=== PATIENT | female | born 1985 | race Caucasian/White ===

== ENCOUNTER 2017-03-18 06:59 | Emergency (ER) | payer OTHER ==
[2017-03-18 07:08] VITALS: BP 135/83; PULSE 94; RESP 20; TEMP 98
--- NOTE | 2017-03-18 07:55 | ED ---
General Adult HPI - General Chief complaint: ENT Stated complaint: sinus problem Time Seen by Provider: 03/18/17 07:00 Source: patient, RN notes reviewed Mode of arrival: ambulatory Limitations: no limitations - History of Present Illness Initial comments: 31-year-old female presents emergency Department with some right ear pressure as well as a culture to her lip on the right side. Patient denies any ear drainage. Patient denies any sinus tenderness. Patient denies any fever or chills. Patient does complain of the pressure coming and going she states it's very difficult pop or ears. Patient states the lip has a cold sore on and has been ongoing for 2 days. Patient denies any paralysis left side of the face she denies any rashes on her skin or around the ear. Patient denies any difficulty breathing first breath patient denies any cough. Patient has a sore throat. - Related Data Home Medications Medication Instructions Recorded Confirmed Citalopram Hydrobromide [CeleXA] 10 mg PO DAILY 03/18/17 03/18/17 Ibuprofen [Motrin] 400 mg PO Q6HR PRN 03/18/17 03/18/17 clonazePAM [KlonoPIN] 0.25 mg PO DAILY PRN 03/18/17 03/18/17 Allergies Allergy/AdvReac Type Severity Reaction Status Date / Time No Known Allergies Allergy Verified 03/18/17 07:42 Review of Systems ROS Statement: Those systems with pertinent positive or pertinent negative responses have been documented in the HPI. ROS Other: All systems not noted in ROS Statement are negative. Past Medical History Past Medical History: No Reported History History of Any Multi-Drug Resistant Organisms: None Reported Additional Past Surgical History / Comment(s): etopic right fallopian tube removed Past Psychological History: Anxiety, Panic Disorder Smoking Status: Never smoker Past Alcohol Use History: Rare Past Drug Use History: None Reported General Exam - General Exam Comments Initial Comments: GENERAL: Patient is well-developed and well-nourished. Patient is nontoxic and well- hydrated and is in no acute distress. ENT: Neck is soft and supple. No significant lymphadenopathy is noted. Oropharynx is clear. Moist mucous membranes. There was a small cluster of vesicles on the inside of the lower lip on the right. TMs were normal bilaterally EYES: The sclera were anicteric and conjunctiva were pink and moist. Extraocular movements were intact and pupils were equal round and reactive to light. Eyelids were unremarkable. SKIN: Skin is clear with no lesions or rashes and otherwise unremarkable. NEUROLOGIC: Patient is alert and oriented x3. Cranial nerves II through XII are grossly intact. Motor and sensory are also intact. Normal speech, volume and content. Symmetrical smile. MUSCULOSKELETAL: Normal extremities with adequate strength and full range of motion. Limitations: no limitations Course Vital Signs 03/18/17 07:05 Temperature 98.0 F Pulse Rate 94 Respiratory 20 Rate Blood Pressure 135/83 O2 Sat by Pulse 97 Oximetry Disposition Clinical Impression: Cold sore Disposition: HOME SELF-CARE Condition: Good Instructions: Oral Herpes Simplex Virus Infections (ED) Additional Instructions: Patient should use Abreva on the cold sore Referrals: None,Stated [Primary Care Provider] - 1-2 days Time of Disposition: 07:55
== END 2017-03-18 08:09 | disposition home or self-care (01) ==
LOC: EC 06:59
DX: B00.1 Herpesviral vesicular dermatitis (principal); F41.0 Panic disorder [episodic paroxysmal anxiety]; Z79.899 Other long term (current) drug therapy
CPT/HCPCS: 99283

== ENCOUNTER 2017-03-22 17:31 | Emergency (ER) | payer OTHER ==
[2017-03-22 17:40] VITALS: BP 131/84; PULSE 91; RESP 18; TEMP 98.6
--- NOTE | 2017-03-22 18:09 | ED ---
General Adult HPI - General Chief complaint: ENT Stated complaint: Problems with shingles Time Seen by Provider: 03/22/17 17:43 Source: patient, RN notes reviewed Mode of arrival: ambulatory Limitations: no limitations - History of Present Illness Initial comments: Patient's 31-year-old female who presents emergency room today with chief complaint of she will rest of right-sided face. She does admit that she's also has a right-sided otitis media. She states she's been on acyclovir along with Augmentin for the symptoms over the last 2 days. Patient states that she was advised that this any symptoms increase or worsen towards the eye or the ear that she should return to the emergency room for further evaluation. She states nearly area was unable to get into an ENT doctor as it is a holiday. Patient denies any increased symptoms going towards the eye. She denies any complaints with the right side. She states the rash as stated about the same over the last few days does not seem to be getting worse or spreading. She states she began having some ringing sensation in the right ear earlier today and was concerned and decided to come back to be checked. Patient denies any other complaints or symptoms. Patient denies any recent fever, chills, shortness of breath, chest pain, back pain, abdominal pain, nausea or vomiting, dysuria or hematuria, constipation or diarrhea, headaches or visual changes, or any other complaints. - Related Data Home Medications Medication Instructions Recorded Confirmed Citalopram Hydrobromide [CeleXA] 10 mg PO DAILY 03/18/17 03/18/17 Ibuprofen [Motrin] 400 mg PO Q6HR PRN 03/18/17 03/18/17 clonazePAM [KlonoPIN] 0.25 mg PO DAILY PRN 03/18/17 03/18/17 Allergies Allergy/AdvReac Type Severity Reaction Status Date / Time No Known Allergies Allergy Verified 03/22/17 17:40 Review of Systems ROS Statement: Those systems with pertinent positive or pertinent negative responses have been documented in the HPI. ROS Other: All systems not noted in ROS Statement are negative. Past Medical History Past Medical History: No Reported History Additional Past Medical History / Comment(s): shingles History of Any Multi-Drug Resistant Organisms: None Reported Additional Past Surgical History / Comment(s): etopic right fallopian tube removed Past Psychological History: Anxiety, Panic Disorder Smoking Status: Never smoker Past Alcohol Use History: None Reported Past Drug Use History: None Reported General Exam - General Exam Comments Initial Comments: General: The patient is awake and alert, in no distress, and does not appear acutely ill. Eye: Pupils are equal, round and reactive to light, extra-ocular movements are intact. No nystagmus. There is normal conjunctiva bilaterally. No signs of icterus. Ears, nose, mouth and throat: There are moist mucous membranes and no oral lesions. No tenderness over the mastoid. Right TM does show increased inflammatory changes with decreased bony landmarks consistent with otitis media. No evidence for shingles to the ear canal. Neck: The neck is supple, there is no tenderness or JVD. Cardiovascular: There is a regular rate and rhythm. No murmur, rub or gallop is appreciated. Respiratory: Lungs are clear to auscultation, respirations are non-labored, breath sounds are equal. No wheezes, stridor, rales, or rhonchi. Gastrointestinal: Soft, non-distended, non-tender abdomen without masses or organomegaly noted. There is no rebound or guarding present. No CVA tenderness. Bowel sounds are unremarkable. Musculoskeletal: Normal ROM, no tenderness. Strength 5/5. Sensation intact. Pulses equal bilaterally 2+. Neurological: A&O x 3. CN II-XII intact, There are no obvious motor or sensory deficits. Coordination appears grossly intact. Speech is normal. Skin: Patient does have she was rash located to the right chin on the maxilla on the right. Psychiatric: Cooperative, appropriate mood & affect, normal judgment. Limitations: no limitations Course Vital Signs 03/22/17 17:37 Temperature 98.6 F Pulse Rate 91 Respiratory 18 Rate Blood Pressure 131/84 O2 Sat by Pulse 100 Oximetry Medical Decision Making - Medical Decision Making Case discussed in detail with attending physician Dr. Jasmine. Patient advised continue current antibiotics and antivirals. Advised follow-up with ENT and ophthalmology. Advised return if any symptoms increase worsen or for any other concerns. Disposition Clinical Impression: Shingles, Acute otitis externa of right ear Disposition: HOME SELF-CARE Condition: Good Instructions: Shingles (ED) Additional Instructions: Please use medication as discussed. Please follow-up with ENT/ophthalmology/ family doctor in the next 2 days of symptoms have not improved. Please return to emergency room if the symptoms increase or worsen or for any other concerns. Referrals: None,Stated [Primary Care Provider] - 1-2 days Lukasz Vincent MD [STAFF PHYSICIAN] - 1-2 days Ryne Caballero MD [STAFF PHYSICIAN] - 1-2 days Time of Disposition: 18:07
== END 2017-03-22 18:11 | disposition home or self-care (01) ==
LOC: EC 17:31
DX: B02.8 Zoster with other complications (principal); F41.0 Panic disorder [episodic paroxysmal anxiety]; Z79.899 Other long term (current) drug therapy
CPT/HCPCS: 99282

== ENCOUNTER 2017-03-29 18:05 | Emergency (ER) | payer OTHER ==
--- NOTE | 2017-03-29 18:48 | ED ---
Recheck HPI - General Chief Complaint: Recheck/Abnormal Lab/Rx Stated Complaint: Test Time Seen by Provider: 03/29/17 18:21 Source: patient, RN notes reviewed Mode of arrival: ambulatory Limitations: no limitations - History of Present Illness Initial Comments: Patient is a 31-year-old female presents to the emergency room for evaluation. Patient states that she is 10 days late for her menstrual cycle. Patient states she is always on time. Patient states she has history of 3 prior pregnancies. One miscarriage, one ectopic and one full-term . Patient states that she took 3 home tests that were all negative. Patient states that because her history of ectopic she wanted to be further evaluated. Patient states she called local [facility] office and she was told to come to the emergency room to get a blood test for . Patient denies abdominal pain. Patient denies any vaginal bleeding or spotting. Patient denies back pain. Patient denies nausea or vomiting. Patient denies chest pain or shortness of breath. Patient denies fevers or chills. Patient denies pain or burning during urination, trouble urinating or blood in urine. - Related Data Home Medications Medication Instructions Recorded Confirmed Citalopram Hydrobromide [CeleXA] 10 mg PO DAILY 03/18/17 03/29/17 clonazePAM [KlonoPIN] 0.25 mg PO DAILY PRN 03/18/17 03/29/17 Allergies Allergy/AdvReac Type Severity Reaction Status Date / Time No Known Allergies Allergy Verified 03/29/17 18:39 Review of Systems ROS Statement: Those systems with pertinent positive or pertinent negative responses have been documented in the HPI. ROS Other: All systems not noted in ROS Statement are negative. Past Medical History Past Medical History: No Reported History Additional Past Medical History / Comment(s): shingles History of Any Multi-Drug Resistant Organisms: None Reported Additional Past Surgical History / Comment(s): etopic right fallopian tube removed Past Psychological History: Anxiety, Panic Disorder Smoking Status: Never smoker Past Alcohol Use History: None Reported Past Drug Use History: None Reported General Exam - General Exam Comments Initial Comments: Sitting in exam room, no distress. Limitations: no limitations General appearance: alert, in no apparent distress Head exam: Present: atraumatic, normocephalic, normal inspection Eye exam: Present: normal appearance ENT exam: Present: normal exam Neck exam: Present: normal inspection Respiratory exam: Present: normal lung sounds bilaterally. Absent: respiratory distress Cardiovascular Exam: Present: regular rate, normal rhythm, normal heart sounds GI/Abdominal exam: Present: soft, normal bowel sounds. Absent: distended, tenderness, guarding, rebound, rigid Extremities exam: Present: normal inspection Back exam: Present: normal inspection. Absent: CVA tenderness (R), CVA tenderness (L) Neurological exam: Present: alert, oriented X3, CN II-XII intact, normal gait Psychiatric exam: Present: normal affect, normal mood Skin exam: Present: warm, dry, intact, normal color. Absent: rash Course Vital Signs 03/29/17 03/29/17 18:17 19:30 Temperature 99.1 F 98.3 F Pulse Rate 74 79 Respiratory 20 18 Rate Blood Pressure 141/85 119/71 O2 Sat by Pulse 97 97 Oximetry Medical Decision Making - Medical Decision Making Patient is a 31-year-old female presents emergency room for test. Urine test negative. Beta hCG serum negative for . Patient advised follow-up with her [facility] or primary care provider. Return parameters discussed. - Lab Data Lab Results 03/29/17 03/29/17 03/29/17 Range/Units 18:30 18:30 18:30 HCG, Quant <2.4 mIU/mL Urine Color Light Yellow Urine Appearance Clear (Clear) Urine pH 7.0 (5.0-8.0) Ur Specific [place] 1.009 (1.001-1.035) Urine Protein Negative (Negative) Urine Glucose (UA) Negative (Negative) Urine Ketones Negative (Negative) Urine Blood Trace H (Negative) Urine Nitrite Negative (Negative) Urine Bilirubin Negative (Negative) Urine Urobilinogen <2.0 (<2.0) mg/dL Ur Leukocyte Esterase Negative (Negative) Urine RBC <1 (0-5) /hpf Urine WBC <1 (0-5) /hpf Ur Squamous Epith Cells <1 (0-4) /hpf Urine Bacteria Rare H (None) /hpf Urine Mucus Rare H (None) /hpf Urine HCG, Qual Not Detected (Not Detectd) Disposition Clinical Impression: Encounter for test with result negative, Irregular menses Disposition: HOME SELF-CARE Condition: Good Instructions: Dysfunctional Uterine Bleeding (ED) Additional Instructions: Please follow up with primary care provider or [facility]. Referrals: None,Stated [Primary Care Provider] - 1-2 days Time of Disposition: 19:15
[2017-03-29 18:52] LABS: Appearance,Urine Clear (Clear); Bacteria,Urine Rare /hpf; Bilirubin,Urine Negative (Negative); Glucose,Urine (UA) Negative (Negative); Ketones,Urine Negative (Negative); Leukocyte Esterase,Urine Negative (Negative); Mucus,Urine Rare /hpf; Nitrite,Urine Negative (Negative); Particle Count 307; Protein,Urine Negative (Negative); RBC,Urine <1 /hpf (0-5); Specific Gravity,Urine 1.009 (1.001-1.035); Squamous Epithelial Cell,Urine <1 /hpf (0-4); UA Billing (MACRO vs. MICRO) MICRO; Urobilinogen,Urine <2.0 mg/dL (<2.0); WBC,Urine <1 /hpf (0-5)
[2017-03-29 19:30] VITALS: BP 119/71; PULSE 79; RESP 18; TEMP 98.3
== END 2017-03-29 19:30 | disposition home or self-care (01) ==
LOC: EC 18:05
DX: N92.6 Irregular menstruation, unspecified (principal); Z32.02 Encounter for pregnancy test, result negative; F41.0 Panic disorder [episodic paroxysmal anxiety]; Z79.899 Other long term (current) drug therapy
CPT/HCPCS: 36415; 81001; 81025; 84702; 99283

== ENCOUNTER → 2017-11-08 | Outpatient (CLI) | payer OTHER ==
[2017-11-08 13:12] LABS: Basophils % (A) 0 %; Eosinophils # (A) 0.1 k/uL (0-0.7); Eosinophils % (A) 1 %; HCT 42.3 % (34.0-46.0); HGB 14.1 gm/dL (11.4-16.0); Lymphocytes # (A) 1.7 k/uL (1.0-4.8); Lymphocytes % (A) 21 %; MCH 29.5 pg (25.0-35.0); MCHC 33.4 g/dL (31.0-37.0); MCV 88.3 fL (80.0-100.0); Mean Platelet Volume 7.2; Monocytes # (A) 0.3 k/uL (0-1.0); Monocytes % (A) 4 %; Neutrophils # (A) 5.9 k/uL (1.3-7.7); Neutrophils % (A) 73 %; Platelet Count 227 k/uL (150-450); RDW 12.5 % (11.5-15.5)
== END | disposition home or self-care (01) ==
LOC: LABWHC1 12:07
PROVIDERS: ATTEND Family Medicine
DX: R00.2 Palpitations (principal); F41.9 Anxiety disorder, unspecified
CPT/HCPCS: 36415; 85025; 93005

== ENCOUNTER → 2017-12-07 | Outpatient (CLI) | payer OTHER ==
--- NOTE | 2017-12-08 10:04 | ECHOF ---
Referral Reason:R00.2 Palpitations MEASUREMENTS -------- HEIGHT: 167.6 cm WEIGHT: 108.9 kg BP: IVSd: 1.1 cm (0.6 - 1.1) LVIDd: 4.4 cm (3.9 - 5.3) LVPWd: 1.0 cm (0.6 - 1.1) IVSs: 1.5 cm LVIDs: 2.6 cm LVPWs: 1.2 cm LAESV Index (A-L): 27.03 ml/m Ao Diam: 2.6 cm (2.0 - 3.7) AV Cusp: 1.8 cm (1.5 - 2.6) LA Diam: 3.1 cm (2.7 - 3.8) MV EXCURSION: 19.436 mm (> 18.000) MV EF SLOPE: 140 mm/s (70 - 150) EPSS: 0.4 cm MV E Tra: 0.65 m/s MV DecT: 273 ms MV A Tra: 0.63 m/s MV E/A Ratio: 1.04 RAP: 5.00 mmHg RVSP: 24.02 mmHg FINDINGS -------- Sinus rhythm. This was a technically good study. The left ventricular size is normal. Left ventricular wall thickness is normal. Overall left vent ricular systolic function is normal with, an EF between 55 - 60 %. The right ventricle is normal in size and function. Normal LA size by volume 22+/-6 ml/m2. The right atrium is normal in size. The aortic valve is trileaflet, and appears structurally normal. No aortic stenosis or regurgitation. The mitral valve is normal. There is trace mitral regurgitation. Mild tricuspid regurgitation present. Right ventricular systolic pressure is normal at < 35 mmHg. There is no evidence of pulmonary hypertension. The pulmonic valve is normal. The aortic root size is normal. Normal inferior vena cava with normal inspiratory collapse consistent with estimated right atrial pre ssure of 5 mmHg. The pericardium is normal. There is no pericardial effusion. CONCLUSIONS -------- 1. Sinus rhythm. 2. This was a technically good study. 3. The left ventricular size is normal. 4. Left ventricular wall thickness is normal. 5. Overall left ventricular systolic function is normal with, an EF between 55 - 60 %. 6. Normal LA size by volume 22+/-6 ml/m2. 7. The aortic valve is trileaflet, and appears structurally normal. No aortic stenosis or regurgitati on. 8. There is trace mitral regurgitation. 9. Mild tricuspid regurgitation present. 10. Right ventricular systolic pressure is normal at < 35 mmHg. 11. There is no evidence of pulmonary hypertension. 12. The aortic root size is normal. 13. There is no pericardial effusion. [employer]NER: Ulysses Villeda RDCS
== END | disposition home or self-care (01) ==
LOC: RADECHMAIN 11:50
PROVIDERS: ATTEND Family Medicine
DX: I08.1 Rheumatic disorders of both mitral and tricuspid valves (principal)
CPT/HCPCS: 93225; 93226; 93306

== ENCOUNTER → 2018-06-10 | Outpatient (CLI) | payer OTHER | END | disposition home or self-care (01) | LOC: LABWHC1 08:43 | PROVIDERS: ATTEND Obstetrics & Gynecology Obstetrics | DX: O20.0 Threatened abortion (principal); Z3A.00 Weeks of gestation of pregnancy not specified | CPT/HCPCS: 36415; 84702 ==